=== PATIENT | female | born 2000 | race Two or more races ===

== ENCOUNTER 2021-01-08 13:00 | Inpatient (IN) | payer OTHER ==
[2021-01-08] MEDS ORDERED: Lidocaine 1% (PF) 30 ML VIAL SC PRN (13:38)
[2021-01-08] MEDS ORDERED: Ondansetron PF 4 MG/2 ML Vial IVP PRN (13:38)
[2021-01-08] MEDS ORDERED: Methylergonovine 0.2 MG/ML VIAL IM PRN (13:38)
[2021-01-08] MEDS ORDERED: Misoprostol 200 MCG TAB PR PRN (13:38)
[2021-01-08] MEDS ORDERED: Ibuprofen 800 MG TAB PO PRN (13:38)
[2021-01-08] MEDS ORDERED: Promethazine HCl 25 MG/ML VIAL IM PRN (13:38)
[2021-01-08] MEDS ORDERED: hydrALAZINE 20 MG/ML VIAL SLOW IVP PRN (13:38)
[2021-01-08] MEDS ORDERED: Acetaminophen 500 MG TAB PO PRN (13:38)
[2021-01-08 13:44] VITALS: BMI 32.7
[2021-01-08] MEDS ORDERED: Misoprostol 100 MCG TAB PO SCH (13:45)
[2021-01-08] MEDS ORDERED: NS w/ Oxytocin 30 units 500 ML IV SCH ×2 (13:45)
[2021-01-08] MEDS ORDERED: Penicillin G 2.5 MILL.units 2.5 MILL.UNITS in Premix Bag 1 BAG IVPB SCH (13:45)
[2021-01-08] MEDS ORDERED: Penicillin G Potassium 5 MILL.UNITS in Sodium Chloride 0.9% 100 ML IVPB SCH (13:45)
[2021-01-08] MEDS: Lactated Ringer's 1,000 ML IV SCH ×2 (14:58→17:48)
[2021-01-08 16:34] LABS: SARS-CoV-2 NAA Rapid Test Not Detected (NotDetected)
[2021-01-08 17:07] LABS: Hemoglobin 11.6 g/dL (12.0-15.5); Mean Corpuscular HGB CONC 31.5 g/dL (32.0-36.0); Mean Corpuscular Volume 82.5 fl (81.6-98.3); Mean Platelet Volume 12.3 fl (7.4-10.4); Platelet Count 225 10x3/uL (150-450); RBC Distribution Width 14.9 % (11.5-14.5); Red Blood Cell (RBC) Count 4.46 10x6/uL (3.90-5.03); White Blood Cell (WBC) Count 10.6 10x3/uL (3.5-10.5)
[2021-01-08 17:57] LABS: HIV (1/2) Antibody/Antigen Non-Reactive (NonReactive); HIV 1/2 INDEX 0.08 S/CO (<1.00); Hep B Surf Ag Non-Reactive S/CO (NonReactive); Syphilis Antibody Nonreactive (Nonreactive); Syphilis Antibody Index 0.05 S/CO (<1.00 Non-Reactive)
[2021-01-08 18:36] LABS: HBSAg Index 0.53 S/CO (0-0.99)
[2021-01-08] MEDS ORDERED: Misoprostol 100 MCG TAB ONE (19:29)
[2021-01-08] MEDS: Penicillin G 2.5 MILL.units 2.5 MILL.UNITS in Premix Bag 1 BAG IVPB SCH ×2 (19:30→23:47)
[2021-01-08] MEDS ORDERED: diphenhydrAMINE 25 MG CAP PO SCH (22:30)
[2021-01-08] MEDS: Misoprostol 100 MCG TAB PO SCH (23:30)
[2021-01-09] MEDS: Penicillin G 2.5 MILL.units 2.5 MILL.UNITS in Premix Bag 1 BAG IVPB SCH ×5 (03:35→21:04)
[2021-01-09] MEDS: Misoprostol 100 MCG TAB PO SCH (03:35)
[2021-01-09] MEDS ORDERED: Butorphanol Tartrate 1 MG/ML VIAL ONE ×2 (14:54→16:24)
[2021-01-09] MEDS ORDERED: Butorphanol Tartrate 1 MG/ML VIAL SLOW IVP PRN (17:35)
[2021-01-09] MEDS ORDERED: Lidocaine 1% (PF) 30 ML VIAL ONE (19:19)
[2021-01-09] MEDS: Lactated Ringer's 1,000 ML IV SCH (20:00)
[2021-01-09] MEDS ORDERED: Ondansetron PF 4 MG/2 ML Vial IVP PRN (22:39)
[2021-01-09] MEDS ORDERED: Preparation H Ointment 28 GM TUBE PR PRN (22:39)
[2021-01-09] MEDS ORDERED: Benzocaine-Menthol 82.5 ML CAN TOP PRN (22:39)
[2021-01-09] MEDS ORDERED: Bisacodyl 10 MG SUPP PR PRN (22:39)
[2021-01-09] MEDS ORDERED: hydrALAZINE 20 MG/ML VIAL SLOW IVP PRN (22:39)
[2021-01-09] MEDS ORDERED: Milk Of Magnesia 30 ML UDCUP PO PRN (22:39)
[2021-01-09] MEDS ORDERED: NS w/ Oxytocin 30 units 500 ML IV SCH (22:39)
[2021-01-09] MEDS ORDERED: Lanolin Ointment 7 GM TUBE TOP PRN (22:39)
[2021-01-09] MEDS ORDERED: diphenhydrAMINE 25 MG CAP PO PRN (22:39)
[2021-01-10] MEDS: Acetaminophen 325 MG TAB PO PRN ×2 (02:31→09:24)
[2021-01-10] MEDS: Ibuprofen 800 MG TAB PO SCH ×4 (02:38→21:18)
[2021-01-10 06:55] LABS: Mean Corpuscular HGB CONC 30.9 g/dL (32.0-36.0); Mean Corpuscular Hemoglobin 25.8 pg (27.0-33.0); Mean Corpuscular Volume 83.4 fl (81.6-98.3); Platelet Count 198 10x3/uL (150-450); RBC Distribution Width 15.2 % (11.5-14.5); Red Blood Cell (RBC) Count 4.27 10x6/uL (3.90-5.03)
[2021-01-10] MEDS: Ferrous Sulfate 325 MG TAB PO SCH (07:27)
[2021-01-10] MEDS: Lactated Ringer's 1,000 ML IV SCH (07:28)
[2021-01-10] MEDS: Misoprostol 100 MCG TAB PO SCH (07:42)
[2021-01-10] MEDS ORDERED: Boostrix 0.5 ML (Tdap) VIAL IM ONE (09:00)
[2021-01-10] MEDS: Docusate Calcium (SURFAK) 240 MG CAP PO SCH ×2 (09:24→21:18)
[2021-01-10] MEDS: Prenatal Vitamin 1 TAB PO SCH (09:24)
[2021-01-10] MEDS ORDERED: Ondansetron ODT 4 MG TAB PO PRN (09:58)
[2021-01-11] MEDS: Acetaminophen 325 MG TAB PO PRN ×2 (02:39→12:02)
[2021-01-11] MEDS: Ibuprofen 800 MG TAB PO SCH ×2 (05:14→14:16)
[2021-01-11] MEDS: Ferrous Sulfate 325 MG TAB PO SCH ×2 (07:31→07:32)
[2021-01-11 07:36] VITALS: BP 111/63; TEMP 98.1
[2021-01-11] MEDS: Prenatal Vitamin 1 TAB PO SCH (08:43)
[2021-01-11] MEDS: Docusate Calcium (SURFAK) 240 MG CAP PO SCH (08:43)
== END 2021-01-11 20:51 | disposition home or self-care (01) | DRG 807 ==
LOC: CSHLD/OP 13:00 → CSHLD 16:40 → CSHPP 01-09 23:50
PROVIDERS: ADMIT Family Medicine; ATTEND Family Medicine
PROC: 10E0XZZ Delivery of Products of Conception, External Approach (ICD-10-PCS; principal; 2021-01-09)
PROC: 10907ZC Drainage of Amniotic Fluid, Therapeutic from Products of Conception, Via Natural or Artificial Opening (ICD-10-PCS; 2021-01-09)
PROC: 10H07YZ Insertion of Other Device into Products of Conception, Via Natural or Artificial Opening (ICD-10-PCS; 2021-01-09)
PROC: 3E0P7VZ Introduction of Hormone into Female Reproductive, Via Natural or Artificial Opening (ICD-10-PCS; 2021-01-09)
PROC: 3E033VJ Introduction of Other Hormone into Peripheral Vein, Percutaneous Approach (ICD-10-PCS; 2021-01-09)
DX: O99.824 Streptococcus B carrier state complicating childbirth (principal); Z37.0 Single live birth; O99.52 Diseases of the respiratory system complicating childbirth; O99.344 Other mental disorders complicating childbirth; F41.9 Anxiety disorder, unspecified; Z3A.39 39 weeks gestation of pregnancy; J45.909 Unspecified asthma, uncomplicated
CPT/HCPCS: 85027; 86780; 86850; 86900; 86901; 87340; 87389; 88307; 99285; J0595; J2540; J2590; J3490; J7120; Q0162; U0002